=== PATIENT | female | born 1990 | race African-American/Black ===

== ENCOUNTER 2021-02-04 17:17 | Emergency (ER) | payer SELFPAY ==
[2021-02-04] MEDS ORDERED: Lorazepam 2 MG/ML VIAL ONE (17:39)
== END 2021-02-04 18:15 | disposition home or self-care (01) ==
LOC: MADERS 17:17
DX: F41.9 Anxiety disorder, unspecified (principal); F17.210 Nicotine dependence, cigarettes, uncomplicated
CPT/HCPCS: 96372; 99284; J2060

== ENCOUNTER 2021-12-10 16:11 | Emergency (ER) | payer MEDICAID, SELFPAY ==
[2021-12-10 17:33] LABS: Bilirubin Negative (Negative); Blood, Urine Trace (Negative); Clarity Cloudy (Clear); Glucose, Urine (Dipstick) Negative (Negative); Ketone, Urine Negative (Negative); Leukocyte Negative (Negative); Nitrite Negative (Negative); Protein, Urine (Dipstick) Negative (Neg-Trace); Specific Gravity, Urine 1.015 (1.005-1.030)
[2021-12-10 17:36] LABS: Pregnancy Test - Urine (BHCG) POSITIVE (Negative); Pregu Control Background? CLEAR/WHITE (CLR/WHITE); Pregu Control Bar Appear? YES (CONTROL BAR); Specific Gravity 1.015 (1.002-1.036)
[2021-12-10 17:44] LABS: RBC/HPF 0-3 HPF (0-3); Renal Epithelial 0-3 HPF (None Seen)
[2021-12-10 17:45] LABS: Bacteria/HPF 1+ HPF (None Seen); Mucous/LPF 1+ LPF (<2+); Yeast-Budding 1+ HPF (None Seen)
== END 2021-12-10 18:19 | disposition home or self-care (01) ==
LOC: MADERS 16:11
DX: O9A.219 Injury, poisoning and certain other consequences of external causes complicating pregnancy, unspecified trimester (principal); S93.402A Sprain of unspecified ligament of left ankle, initial encounter; O23.10 Infections of bladder in pregnancy, unspecified trimester; B37.41 Candidal cystitis and urethritis; O99.330 Smoking (tobacco) complicating pregnancy, unspecified trimester; F17.210 Nicotine dependence, cigarettes, uncomplicated; W17.2XXA Fall into hole, initial encounter; Z3A.00 Weeks of gestation of pregnancy not specified; Z79.899 Other long term (current) drug therapy
CPT/HCPCS: 81003; 81015; 81025

== ENCOUNTER 2022-03-05 13:07 | Emergency (ER) | payer MEDICAID, OTHER ==
[2022-03-05 13:54] LABS: #Basophils 0.1 thou/uL (0.0-0.2); #Lymphocytes 1.9 thou/uL (1.20-3.40); #Monocytes 0.6 thou/uL (0.11-0.59); #Neutrophils 6.6 thou/uL (1.40-6.50); %Basophils 1.1 % (0.0-1.0); %Eosinophils 0.5 % (0.0-10.0); %Lymphocytes 20.8 % (21.0-51.0); %Monocytes 6.4 % (0.0-10.0); %Neutrophils 71.3 % (42.0-75.0); Hemoglobin 10.2 g/dL (12.0-16.0); Mean Corpuscular HGB CONC 32.1 g/dL (32.0-36.0); Mean Corpuscular Hemoglobin 26.7 pg (27.0-31.0); Mean Corpuscular Volume 83.2 fL (78.0-98.0); Platelet Count 181 thou/uL (130-400); RBC Distribution Width 12.6 % (11.5-14.5); Red Blood Cell (RBC) Count 3.82 mill/uL (4.20-5.40); White Blood Cell (WBC) Count 9.3 thou/uL (4.8-10.8)
[2022-03-05 14:13] LABS: Bilirubin Negative (Negative); Blood, Urine Moderate (Negative); Glucose, Urine (Dipstick) Negative (Negative); Ketone, Urine Negative (Negative); Leukocyte Negative (Negative); Nitrite Negative (Negative); Protein, Urine (Dipstick) 30 mg/dL (Neg-Trace); Specific Gravity, Urine 1.025 (1.005-1.030); pH, Urine 6.5 (5.0-9.0)
[2022-03-05 14:15] LABS: ALT (SGPT) Less than 7 U/L (8-55); AST (SGOT) 12 U/L (5-34); Albumin 3.1 g/dL (3.5-5.0); Alkaline Phosphatase 250 U/L (40-110); Anion Gap 14 mmol/L (10-20); BUN (Urea Nitrogen) 5 mg/dL (7.0-18.7); Bilirubin, Total 0.3 mg/dL (0.2-1.2); Calc. Creatinine Clearance 0 mL/min (70-130); Calcium 8.5 mg/dL (7.8-10.44); Carbon Dioxide 18 mmol/L (22-29); Chloride 107 mmol/L (98-107); Estimated GFR 121; Globulin 3.2 g/dL (2.4-3.5); Glucose 108 mg/dL (70-105); Lipase 102 U/L (8-78); Potassium 3.4 mmol/L (3.5-5.1); Protein, Total 6.3 g/dL (6.0-8.3); Sodium 136 mmol/L (136-145)
[2022-03-05 14:16] LABS: Clarity Slightly Cloudy (Clear)
[2022-03-05 14:20] LABS: Bacteria/HPF 2+ HPF (None Seen); WBC/HPF 0-3 HPF (0-3)
== END 2022-03-05 14:41 | disposition home or self-care (01) ==
LOC: MADERS 13:07
DX: R10.13 Epigastric pain (principal); F17.210 Nicotine dependence, cigarettes, uncomplicated; Z79.899 Other long term (current) drug therapy
CPT/HCPCS: 36415; 80053; 81003; 81015; 83690; 85025

== ENCOUNTER 2022-03-27 15:40 | Emergency (ER) | payer OTHER | END 2022-03-27 16:12 | disposition short-term general hospital (02) | LOC: MADERS 15:40 | DX: O47.03 False labor before 37 completed weeks of gestation, third trimester (principal); O99.333 Smoking (tobacco) complicating pregnancy, third trimester; F17.210 Nicotine dependence, cigarettes, uncomplicated; Z3A.36 36 weeks gestation of pregnancy ==

== ENCOUNTER 2022-07-29 09:54 | Emergency (ER) | payer OTHER ==
[2022-07-29] MEDS ORDERED: Iopamidol 370 76% 100 ML VIAL ONE (09:56)
[2022-07-29] MEDS ORDERED: HYDROcodone/Acetaminophen 5/325 mg Tablet ONE (10:35)
[2022-07-29 11:35] LABS: Pregnancy Test - Urine (BHCG) Negative (Negative); Pregu Control Background? CLEAR/WHITE (CLR/WHITE); Pregu Control Bar Appear? YES (CONTROL BAR); Specific Gravity 1.023 (1.002-1.036)
== END 2022-07-29 12:29 | disposition home or self-care (01) ==
LOC: MADERS 09:54
DX: S39.012A Strain of muscle, fascia and tendon of lower back, initial encounter (principal); S13.4XXA Sprain of ligaments of cervical spine, initial encounter; W01.0XXA Fall on same level from slipping, tripping and stumbling without subsequent striking against object, initial encounter
CPT/HCPCS: 70450; 71270; 72125; 81025; Q9967

== ENCOUNTER 2022-09-16 14:40 | Emergency (ER) | payer OTHER ==
[2022-09-16] MEDS ORDERED: Bupivacaine HCl 0.5%/Epinephrine 1:200,000/PF 30 ml Vial ONE (15:00)
[2022-09-16] MEDS ORDERED: Ketorolac Tromethamine 60 MG/2 ML VIAL ONE (16:27)
== END 2022-09-16 16:43 | disposition home or self-care (01) ==
LOC: MADERS 14:40
DX: K08.89 Other specified disorders of teeth and supporting structures (principal)
CPT/HCPCS: 64400; 96372; J1885

== ENCOUNTER 2022-09-19 10:16 | Emergency (ER) | payer OTHER ==
[2022-09-19] MEDS ORDERED: predniSONE 20 MG TAB ONE (11:10)
[2022-09-19] MEDS ORDERED: diphenhydrAMINE 25 MG CAP ONE (11:10)
[2022-09-19] MEDS ORDERED: Amoxicillin/Potassium Clav 875 MG TAB ONE (11:10)
== END 2022-09-19 11:28 | disposition home or self-care (01) ==
LOC: MADERS 10:16
DX: T78.3XXA Angioneurotic edema, initial encounter (principal); K08.89 Other specified disorders of teeth and supporting structures; J01.90 Acute sinusitis, unspecified
CPT/HCPCS: 99283; J7512

== ENCOUNTER 2022-10-25 14:33 | Emergency (ER) | payer OTHER | END 2022-10-25 15:47 | disposition left against medical advice (07) | LOC: MADERS 14:33 | DX: Z53.21 Procedure and treatment not carried out due to patient leaving prior to being seen by health care provider (principal) ==

== ENCOUNTER 2022-10-25 16:43 | Emergency (ER) | payer OTHER ==
[2022-10-25 17:31] LABS: Pregnancy Test - Urine (BHCG) POSITIVE (Negative); Pregu Control Background? CLEAR/WHITE (CLR/WHITE); Pregu Control Bar Appear? YES (CONTROL BAR); Specific Gravity 1.023 (1.002-1.036)
== END 2022-10-25 17:50 | disposition left against medical advice (07) ==
LOC: MADERS 16:43
DX: Z53.21 Procedure and treatment not carried out due to patient leaving prior to being seen by health care provider (principal)
CPT/HCPCS: 81025

== ENCOUNTER 2023-05-01 21:33 | Emergency (ER) | payer OTHER ==
[2023-05-01 22:06] LABS: Hematocrit 32.1 % (36.0-47.0); Hemoglobin 10.7 g/dL (12.0-16.0); Lymphocytes 20 % (21-51); MDiff Complete? YES; Mean Corpuscular HGB CONC 33.4 g/dL (32.0-36.0); Mean Corpuscular Hemoglobin 28.5 pg (27.0-31.0); Mean Corpuscular Volume 85.5 fl (78.0-98.0); Mean Platelet Volume 9.2 fL (7.4-10.4); Monocytes 7 % (0-10); Neutrophil 73 % (42-75); Platelet Count 176 10x3/uL (130-400); RBC Distribution Width 13.1 % (11.5-14.5); Red Blood Cell (RBC) Count 3.76 mill/uL (4.20-5.40); White Blood Cell (WBC) Count 11.6 10x3/uL (4.8-10.8)
[2023-05-01 22:14] LABS: Prothrombin Time 13.6 sec (12.0-14.7)
[2023-05-01 22:24] LABS: ALT (SGPT) Less than 7 U/L (8-55); AST (SGOT) 11 U/L (5-34); Albumin 3.3 g/dL (3.5-5.0); Alkaline Phosphatase 381 U/L (40-110); Anion Gap 17 mmol/L (10-20); BUN (Urea Nitrogen) 5 mg/dL (7.0-18.7); Bilirubin, Total 0.3 mg/dL (0.2-1.2); Calc. Creatinine Clearance 0 mL/min (70-130); Calcium 8.9 mg/dL (7.8-10.44); Carbon Dioxide 18 mmol/L (22-29); Chloride 107 mmol/L (98-107); Estimated GFR 119; Globulin 3.4 g/dL (2.4-3.5); Glucose 75 mg/dL (70-105); Potassium 3.5 mmol/L (3.5-5.1); Protein, Total 6.7 g/dL (6.0-8.3); Sodium 138 mmol/L (136-145)
== END 2023-05-01 22:35 | disposition short-term general hospital (02) ==
LOC: MADERS 21:33
DX: O47.1 False labor at or after 37 completed weeks of gestation (principal); O99.333 Smoking (tobacco) complicating pregnancy, third trimester; Z3A.37 37 weeks gestation of pregnancy
CPT/HCPCS: 80053; 85025; 85610; 99284

== ENCOUNTER 2024-02-01 13:35 | Emergency (ER) | payer OTHER ==
[2024-02-01 13:58] LABS: Bilirubin Negative (Negative); Blood, Urine Small (Negative); Clarity Slightly Cloudy (Clear); Glucose, Urine (Dipstick) Negative (Negative); Ketone, Urine Negative (Negative); Leukocyte Moderate (Negative); Nitrite Positive (Negative); Protein, Urine (Dipstick) 100 mg/dL (Neg-Trace)
[2024-02-01 14:02] LABS: Specific Gravity, Urine 1.031 (1.002-1.036)
[2024-02-01 14:07] LABS: Bacteria/HPF 4+ HPF (None Seen); CAUTI Indications for Culture Fever or rigors; Squamous Epithelial 0-3 HPF (0-3); WBC/HPF Greater Than 50 HPF (0-3)
[2024-02-01 14:09] LABS: Urine Culture Reflex Yes Yes
[2024-02-01] MEDS ORDERED: Cephalexin 500 MG CAP ONE (14:18)
== END 2024-02-01 14:26 | disposition home or self-care (01) ==
LOC: MADERS 13:35
DX: N39.0 Urinary tract infection, site not specified (principal); R30.0 Dysuria; F17.290 Nicotine dependence, other tobacco product, uncomplicated
CPT/HCPCS: 81001; 87077; 87086; 87186; 99283

== ENCOUNTER 2024-02-27 12:27 | Emergency (ER) | payer OTHER ==
[2024-02-27] MEDS ORDERED: HYDROcodone/Acetaminophen 5/325 mg Tablet ONE (13:29)
== END 2024-02-27 13:56 | disposition home or self-care (01) ==
LOC: MADERS 12:27
DX: K04.7 Periapical abscess without sinus (principal); F17.290 Nicotine dependence, other tobacco product, uncomplicated; Z55.6 Problems related to health literacy
CPT/HCPCS: 99283

== ENCOUNTER 2025-01-06 14:31 | Emergency (ER) | payer SELFPAY ==
[2025-01-06 15:53] LABS: Glucose, Urine (Dipstick) Negative (Negative); Leukocyte Negative (Negative); Protein, Urine (Dipstick) Negative (Neg-Trace); Specific Gravity, Urine 1.020 (1.005-1.030)
[2025-01-06 16:08] LABS: Bacteria/HPF 2+ HPF (None Seen); CAUTI Indications for Culture Dysuria,urgency,freq; RBC/HPF 0-3 HPF (0-3)
[2025-01-06 16:09] LABS: Urine Culture Reflex Yes Yes
[2025-01-06 16:20] LABS: Pregnancy Test - Urine (BHCG) Negative (Negative); Pregu Control Background? CLEAR/WHITE (CLR/WHITE); Pregu Control Bar Appear? YES (CONTROL BAR)
[2025-01-06] MEDS ORDERED: cefTRIAXone (ROCEPHIN) 1 GM VIAL ONE (16:25)
== END 2025-01-06 16:45 | disposition home or self-care (01) ==
LOC: MADERS 14:31
DX: N39.0 Urinary tract infection, site not specified (principal); F17.290 Nicotine dependence, other tobacco product, uncomplicated
CPT/HCPCS: 81001; 81025; 87077; 87086; 87186; 96372; 99283; J0696

== ENCOUNTER 2025-01-26 14:44 | Emergency (ER) | payer SELFPAY | END 2025-01-26 16:08 | disposition home or self-care (01) | LOC: MADERS 14:44 | DX: N76.0 Acute vaginitis (principal); B96.89 Other specified bacterial agents as the cause of diseases classified elsewhere; F17.290 Nicotine dependence, other tobacco product, uncomplicated | CPT/HCPCS: 99283 ==